=== PATIENT | female | born 1995 | race Caucasian/White ===

== ENCOUNTER 2016-07-08 04:21 | Inpatient (IN) | payer OTHER ==
[2016-07-08] MEDS ORDERED: Ondansetron INJ* 2 MG/ML VIAL IV ONE ×2 (04:38→05:01)
[2016-07-08] MEDS ORDERED: Insulin REGULAR(*) 1 UNITS UNIT IV ONE (04:38)
[2016-07-08] MEDS: NS 0.9% 1000 ML* 2,000 ML IV ONE ×2 (04:47→08:40)
[2016-07-08 04:56] LABS: Hematocrit 43 % (35-47); Hemoglobin 13.9 g/dl (12.0-16.0); Mean Corpuscular HGB Conc 32 g/dl (31-36); Mean Corpuscular Hemoglobin 30 pg (27-31); Mean Corpuscular Volume 92 fL (80-97); Mean Platelet Volume 10 um3 (7.4-10.4); Red Blood Count 4.68 10^6/ul (4.0-5.4); Red Cell Distribution Width 13 % (10.5-15); White Blood Count 10.1 10^3/ul (3.5-10.8)
[2016-07-08] MEDS ORDERED: NS 0.9% 1000 ML* 1,000 ML IV SCH (05:00)
[2016-07-08] MEDS ORDERED: Morphine INJ* 2 MG/ML 1 ML SYRINGE IV ONE (05:01)
[2016-07-08 05:10] LABS: ALT 28 U/L (7-52); Albumin 4.3 g/dL (3.2-5.2); Alkaline Phosphatase 88 U/L (34-104); BUN/Creatinine Ratio 19.3 (8-20); Blood Urea Nitrogen 17 mg/dL (6-24); Calcium 9.7 mg/dL (8.6-10.3); Chloride 95 mmol/L (101-111); EGFR African American 103.3 (>60); EGFR Non-African American 80.4 (>60); Sodium 132 mmol/L (133-145); Total Protein 7.3 g/dL (6.4-8.9)
[2016-07-08 05:13] LABS: CO2 Carbon Dioxide 11 mmol/L (22-32); Glucose 633 mg/dL (70-100)
[2016-07-08] MEDS ORDERED: Acetaminophen TAB* 325 MG PO PRN (05:23)
[2016-07-08] MEDS ORDERED: CMC:Melatonin (NF) 3 MG TAB PO PRN (05:24)
[2016-07-08] MEDS ORDERED: NS 0.9% 1000 ML* 3,000 ML IV ONE (05:25)
[2016-07-08] MEDS ORDERED: Ondansetron INJ* 2 MG/ML VIAL IV PRN (05:25)
[2016-07-08] MEDS ORDERED: PROCHLORPERAZINE INJ 5 MG/ML 2 ML VIAL IV PRN (05:25)
[2016-07-08 05:43] LABS: Venous Bicarbonate HCO3 8.8 mmol/L (24-28)
--- NOTE | 2016-07-08 05:46 | ED ---
Tiago Mota Salem, scribed for Jerry Wright on 07/08/16 at 0452 . HPI Diabetic - HPI Summary HPI Summary: Patient is a 20 y/o female who presents to the ED for acute vomiting and nausea since last night begin at 2230. She reports dyspnea, abd pain, and dehydration. Pt denies fever. She reports having EtOH at 1900. - History Of Current Complaint Chief Complaint: EDDiabeticProb Time Seen by Provider: 07/08/16 04:36 Hx Obtained From: Patient Onset/Duration: Sudden Onset Severity Initially: Moderate Severity Currently: Moderate Aggravating: Nothing Alleviating: Nothing Associated Signs & Symptoms: Abdominal Pain, Nausea, Shortness of Breath, Vomiting - Allergies/Home Medications Allergies/Adverse Reactions: Allergies Allergy/AdvReac Type Severity Reaction Status Date / Time No Known Allergies Allergy Verified 07/08/16 04:47 PMH/Surg Hx/FS Hx/Imm Hx Endocrine/Hematology History: Reports: Hx Diabetes Infectious Disease History: No Infectious Disease History: Denies: Traveled Outside the [place] in Last 30 Days - Family History Known Family History: Positive: Diabetes - brother. Negative: Cardiac Disease - Social History Alcohol Use: Occasionally Hx Tobacco Use: No Review of Systems Positive: Other - Dehydration. . Negative: Fever Positive: Shortness Of Breath Positive: Abdominal Pain, Vomiting, Nausea All Other Systems Reviewed And Are Negative: Yes Physical Exam Triage Information Reviewed: Yes Vital Signs On Initial Exam: Initial Vitals Temp Pulse Resp BP Pulse Ox 98.4 F 115 26 89/63 97 07/08/16 04:26 07/08/16 04:26 07/08/16 04:26 07/08/16 04:26 07/08/16 04:26 Vital Signs Reviewed: Yes Appearance: Positive: No Pain Distress Skin: Positive: Warm, Skin Color Reflects Adequate Perfusion, Dry Head/Face: Positive: Normal Head/Face Inspection Eyes: Positive: EOMI, BART ENT: Positive: Other - DMM. Neck: Positive: Supple, Nontender Respiratory/Lung Sounds: Positive: Clear to Auscultation, Breath Sounds Present Cardiovascular: Positive: RRR, Pulses are Symmetrical in both Upper and Lower Extremities Abdomen Description: Positive: Other: - Tenderness in right and left lower quadrant. Bowel Sounds: Positive: Present Musculoskeletal: Positive: Normal, Strength/ROM Intact Neurological: Positive: Normal, Sensory/Motor Intact, Alert, Oriented to Person Place, Time Diagnostics - Vital Signs Vital Signs Temp Pulse Resp BP Pulse Ox 07/08/16 04:26 98.4 F 115 26 89/63 97 - Laboratory Result Diagrams: 07/08/16 04:42 07/08/16 04:42 Lab Statement: Any lab studies that have been ordered have been reviewed, and results considered in the medical decision making process. - EKG 0428 EKG Interpretation: Sinus tachycardia @ 111 bmp. Diabetic Course/Dx - Diagnoses Provider Diagnoses: DKA (diabetic ketoacidoses), Abdominal pain - Physician Notifications Discussed Care of Patient With: Dr. Whelan (hospitalist) @ 0514. Will admit. - Critical Care Time Critical Care Time: 30-74 min - DKA. Discharge - Discharge Plan Condition: Stable Disposition: ADMITTED TO [facility] The documentation as recorded by the Tiago higgins Salem accurately reflects the service I personally performed and the decisions made by Kyle lopez Emmanuel.
[2016-07-08 05:54] LABS: Lipase < 10 U/L (11.0-82.0)
[2016-07-08 06:06] LABS: TSH (Thyroid Stimulating Horm) 0.76 mcIU/mL (0.34-5.60)
--- NOTE | 2016-07-08 06:19 | HP ---
H&P (Free Text) History and Physical: PCP: Luis Date/Time of Evaluation: 07/08/2016 0530 CC: abdominal cramping, N/V, hyperglycemia HPI: Ms Guo is a 20YO female [place] student HX IDDM since age 5 who reports being in her usual state of health yesterday until around 2200 when she began having diffuse moderate abdominal cramping associated w/ N/V/D. She admits to dry cough, but denies F/C, headache, sore throat, B/U/F of urine, or other issues. She denies chest pain, SOB, palpitations, light-headedness, or other issues. Work up is notable for a glucose of 633 w/ a serum CO2 of 11 and pH of 7.0. Admission will be to ICU for management of DKA. She states she has only been hospitalized for diabetic issues twice in her life. 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; full code status FamHx: twin brother: IDDM ROS: as above, otherwise reviewed and all were negative Constitutional: NAD, normally developed, well-nourished white female vitals: Vital Signs Temp 36.9 C 07/08/16 06:10 Pulse 112 07/08/16 06:10 Resp 16 07/08/16 06:10 BP 105/74 07/08/16 06:10 Pulse Ox 99 07/08/16 06:10 Intake & Output 07/07/16 07/07/16 07/08/16 11:59 23:59 11:59 Intake Total 1999 Balance 1999 Weight 61.235 kg Intake: IV Fluids 1999 HEENM: atraumatic; sclera/conjunctiva: non-icteric/clear; hearing: clinically intact; oropharynx: clear, mucosa moist Neck: soft tissue: non-tender; thyroid: normal Pulmonary: clear to auscultation bilaterally, good aeration, no accessory muscle use CV: RR/RR, normal S1S2, no carotid bruit, no jugular venous distention, 2+ B DP/ PT, no edema Abdominal: soft, non-distended, mildly diffusely tender, no rebound/guarding/ rigidity, normoactive bowel sounds, no hepatosplenomegaly or masses, no costovertebral angle tenderness Musculoskeletal: general: grossly intact; gait: stable Integumental: normal appearance and texture Psychiatric orientation: AA&O to PPS affect: calm mood: cooperative eye contact: fair content: reliable responses: timely insight: fair to good Testing: Lab Results 07/08/16 07/08/16 07/08/16 Range/Units 04:42 04:42 04:42 WBC 10.1 (3.5-10.8) 10^3/ul RBC 4.68 (4.0-5.4) 10^6/ul Hgb 13.9 (12.0-16.0) g/dl Hct 43 (35-47) % MCV 92 (80-97) fL MCH 30 (27-31) pg MCHC 32 (31-36) g/dl RDW 13 (10.5-15) % Plt Count 166 (150-450) 10^3/ul MPV 10 (7.4-10.4) um3 Neut % (Auto) 87.9 H (38-83) % Lymph % (Auto) 8.4 L (25-47) % [place] % (Auto) 2.6 (1-9) % Eos % (Auto) 0.3 (0-6) % Baso % (Auto) 0.8 (0-2) % Absolute Neuts (auto) 8.9 H (1.5-7.7) 10^3/ul Absolute Lymphs (auto) 0.8 L (1.0-4.8) 10^3/ul Absolute Monos (auto) 0.3 (0-0.8) 10^3/ul Absolute Eos (auto) 0 (0-0.6) 10^3/ul Absolute Basos (auto) 0.1 (0-0.2) 10^3/ul Absolute Nucleated RBC 0 10^3/ul Nucleated RBC % 0 VBG pH (7.33-7.43) VBG pCO2 (41-51) mmHg VBG pO2 (35-45) mmHg VBG HCO3 (24-28) mmol/L VBG O2 Saturation (70-80) % VBG Base Excess (0-4) Sodium 132 L (133-145) mmol/L Potassium TNP Chloride 95 L (101-111) mmol/L Carbon Dioxide 11 L* (22-32) mmol/L Anion Gap TNP BUN 17 (6-24) mg/dL Creatinine 0.88 (0.51-0.95) mg/dL Est GFR ( Amer) 103.3 (>60) Est GFR (Non-Af Amer) 80.4 (>60) BUN/Creatinine Ratio 19.3 (8-20) Glucose 633 H* (70-100) mg/dL POC Glucose (mg/dL) (74-106) mg/dL Lactic Acid 2.4 H* (0.5-2.0) mmol/L Calcium 9.7 (8.6-10.3) mg/dL Magnesium 2.0 (1.9-2.7) mg/dL Total Bilirubin 0.60 (0.2-1.0) mg/dL AST TNP ALT 28 (7-52) U/L Alkaline Phosphatase 88 (34-104) U/L Total Protein 7.3 (6.4-8.9) g/dL Albumin 4.3 (3.2-5.2) g/dL Globulin 3.0 (2-4) g/dL Albumin/Globulin Ratio 1.4 (1-3) Lipase < 10 L (11.0-82.0) U/L TSH 0.76 (0.34-5.60) mcIU/mL Beta HCG, Quant < 0.60 mIU/mL 07/08/16 07/08/16 07/08/16 Range/Units 04:42 04:46 05:24 WBC (3.5-10.8) 10^3/ul RBC (4.0-5.4) 10^6/ul Hgb (12.0-16.0) g/dl Hct (35-47) % MCV (80-97) fL MCH (27-31) pg MCHC (31-36) g/dl RDW (10.5-15) % Plt Count (150-450) 10^3/ul MPV (7.4-10.4) um3 Neut % (Auto) (38-83) % Lymph % (Auto) (25-47) % [place] % (Auto) (1-9) % Eos % (Auto) (0-6) % Baso % (Auto) (0-2) % Absolute Neuts (auto) (1.5-7.7) 10^3/ul Absolute Lymphs (auto) (1.0-4.8) 10^3/ul Absolute Monos (auto) (0-0.8) 10^3/ul Absolute Eos (auto) (0-0.6) 10^3/ul Absolute Basos (auto) (0-0.2) 10^3/ul Absolute Nucleated RBC 10^3/ul Nucleated RBC % VBG pH 7.09 L (7.33-7.43) VBG pCO2 27 L (41-51) mmHg VBG pO2 49 H (35-45) mmHg VBG HCO3 8.8 L (24-28) mmol/L VBG O2 Saturation 81.7 H (70-80) % VBG Base Excess -20.2 L (0-4) Sodium (133-145) mmol/L Potassium 4.4 Chloride (101-111) mmol/L Carbon Dioxide (22-32) mmol/L Anion Gap BUN (6-24) mg/dL Creatinine (0.51-0.95) mg/dL Est GFR ( Amer) (>60) Est GFR (Non-Af Amer) (>60) BUN/Creatinine Ratio (8-20) Glucose (70-100) mg/dL POC Glucose (mg/dL) > 444 H* (74-106) mg/dL Lactic Acid (0.5-2.0) mmol/L Calcium (8.6-10.3) mg/dL Magnesium (1.9-2.7) mg/dL Total Bilirubin (0.2-1.0) mg/dL AST 33 ALT (7-52) U/L Alkaline Phosphatase (34-104) U/L Total Protein (6.4-8.9) g/dL Albumin (3.2-5.2) g/dL Globulin (2-4) g/dL Albumin/Globulin Ratio (1-3) Lipase (11.0-82.0) U/L TSH (0.34-5.60) mcIU/mL Beta HCG, Quant mIU/mL ECG, personally reviewed: sinus tachycardia rate 111, no ischemia CXR, personally reviewed: ordered, pending Impression: 20F HX IDDM presenting w/ DKA, no obvious etiology DIAGNOSIS & PLAN Primary DKA : ICU monitoring : insulin GTT to correct acidosis : aggressive IVFs for volume repletion : close monitoring of electrolytes : supplemental oxygen : supportive care Admission Rational: inpatient for ICU management of life-threatening DKA DVTp: ERICA Code Status: full
[2016-07-08] MEDS ORDERED: Pantoprazole IV* 40 MG ONE (06:33)
[2016-07-08] MEDS: Pantoprazole IV* 40 MG IV SCH ×2 (06:39→07:47)
[2016-07-08] MEDS ORDERED: HYDROmorphone* 1 MG/ML 1 ML SYR IV PRN (06:54)
[2016-07-08 08:35] LABS: Potassium 3.7 mmol/L (3.5-5.0)
--- NOTE | 2016-07-08 08:55 | RAD ---
INDICATION: Diabetic ketoacidosis. Possible infection. COMPARISON: None TECHNIQUE: An AP portable view obtained at 0805 hours is submitted. FINDINGS: Bones/Soft Tissues: There are no acute bony findings. Cardiomediastinal: The cardiomediastinal silhouette is normal. Lungs: There are no infiltrates. Pleura: There are no pleural effusions. Other: None IMPRESSION: NO ACTIVE DISEASE.
[2016-07-08 08:56] LABS: BUN/Creatinine Ratio 23.8 (8-20); Blood Urea Nitrogen 15 mg/dL (6-24); Calcium 7.8 mg/dL (8.6-10.3); Chloride 110 mmol/L (101-111); EGFR Non-African American 118.2 (>60); Glucose 262 mg/dL (70-100); Magnesium 1.7 mg/dL (1.9-2.7); Phosphorus 2.2 mg/dL (2.5-5.0); Sodium 137 mmol/L (133-145)
[2016-07-08] MEDS: POTASSIUM CHLORIDE IV PRN ×2 (09:04→15:52)
[2016-07-08] MEDS: DEXTROSE IV PRN ×2 (09:04→15:52)
[2016-07-08] MEDS: [UNRECOGNIZED DRUG - OTHER] IV PRN ×2 (09:04→15:52)
[2016-07-08 09:15] LABS: CO2 Carbon Dioxide 14 mmol/L (22-32); Venous Bicarbonate HCO3 13.8 mmol/L (24-28)
[2016-07-08] MEDS ORDERED: Magnesium Sulfate 2 GM IV* 2 GM/50 ML BAG IVPB ONE (10:30)
[2016-07-08] MEDS ORDERED: Potassium Phosphate IV* 5 MMOLE in NS 0.9% 250 ML* 250 ML IVPB ONE (11:00)
[2016-07-08 13:40] LABS: Phosphorus 2.2 mg/dL (2.5-5.0)
[2016-07-08 14:33] LABS: BUN/Creatinine Ratio 19.7 (8-20); Calcium 7.7 mg/dL (8.6-10.3); EGFR African American 157.7 (>60); EGFR Non-African American 122.6 (>60); Potassium 3.8 mmol/L (3.5-5.0)
[2016-07-08] MEDS ORDERED: Insulin GLARGINE(*) 1 UNITS UNIT SUBCUT SCH (15:00)
[2016-07-08] MEDS ORDERED: Potassium Phosphate IV* 15 MMOLE in NS 0.9% 250 ML* 250 ML IVPB ONE (15:00)
--- NOTE | 2016-07-08 15:34 | PN ---
Hospitalist Progress Note HOSPITALIST ADDENDUM Patient seen and examined at bedside. She states her abdominal pain and nausea are resolved, but feels very tired. The cause of this episode seems to be non-compliance as she missed her Lantus dose yesterday and does not remember how much Humalog she was taking. No signs or symptoms of infection at this time. AG is now closed, glucose is <200. Will resume Lantus, start diet, continue IVF and titrate insulin drip to off. Continue to monitor in ICU.
[2016-07-08] MEDS ORDERED: Dextrose 50% Syringe 50 ML* 25 GM/50 ML SYRINGE IV PUSH PRN (16:03)
[2016-07-08 19:48] LABS: Urine Bilirubin Negative (Negative); Urine Glucose 3+(>=500 mg/dL) (Negative); Urine Nitrite Negative (Negative)
[2016-07-08 20:25] LABS: BUN/Creatinine Ratio 16.9 (8-20); Calcium 7.9 mg/dL (8.6-10.3); EGFR African American 146.6 (>60); Phosphorus 3.4 mg/dL (2.5-5.0); Potassium 4.5 mmol/L (3.5-5.0)
[2016-07-08] MEDS: Insulin LISPRO* 1 UNITS UNIT SUBCUT SCH ×3 (21:01→22:31)
[2016-07-09] MEDS: Insulin LISPRO* 1 UNITS UNIT SUBCUT SCH ×2 (00:25→04:09)
[2016-07-09] MEDS ORDERED: Insulin LISPRO* 1 UNITS UNIT SUBCUT SCH (07:30)
[2016-07-09] MEDS: Pantoprazole IV* 40 MG IV SCH (07:34)
[2016-07-09 07:48] VITALS: BP 91/58
[2016-07-09 08:09] LABS: BUN/Creatinine Ratio 16.3 (8-20); Calcium 8.3 mg/dL (8.6-10.3); EGFR African American 203.1 (>60); EGFR Non-African American 157.9 (>60); Phosphorus 3.6 mg/dL (2.5-5.0); Potassium 3.7 mmol/L (3.5-5.0)
--- NOTE | 2016-07-09 22:20 | DS ---
DISCHARGE SUMMARY: DATE OF ADMISSION: 07/08/16 DATE OF DISCHARGE: 07/09/16 DISCHARGE DIAGNOSIS: Diabetic ketoacidosis. SECONDARY DIAGNOSIS: Type 1 diabetes. HOSPITAL COURSE: Ms. Guo is a 20-year-old lady with a past medical as stated above that presented to the emergency room with complaints of abdominal pain, nausea, vomiting that had started the night prior to admission. Although she denied any other symptoms or precipitating factors, she was found to be in DKA with a glucose of 633, pH of 7.09. She was admitted to the intensive care unit for further management and although, she denied any precipitating factors. Later on, she admitted that she had skipped a dose of Lantus and she has not been using her Humalog sliding scale as she should. The patient was started on an insulin drip, aggressive IV fluid, and electrolyte replacement, and she had progressive improvement. Her glucose level normalized, her anion gap closed, and her acidosis is much improved. The patient was able to tolerate an oral diet and was transitioned back to her regimen of Lantus and Humalog. The patient received education regarding her diagnosis and the importance of followup. She will follow up at [facility] and she was also referred to the [facility] to help her manage her diabetes. The patient states that she has enough insulin at home and she will just need more needles, but she did not want me to send prescriptions to a local pharmacy. She states that she will pick them up at [facility]. The patient is medically stable for discharge at this time. PHYSICAL EXAMINATION: Vital Signs: Temperature 97.6, heart rate is 95, respiratory rate is 16, oxygen saturation 98% on room air, blood pressure is 91/ 58. General: The patient is a young lady, sitting up in bed, in no acute distress. CVS: Normal S1, S2. Regular rate and rhythm. Chest: Breath sounds present bilaterally with no added sounds. Extremities: No edema. Neuro: She is alert, awake, and oriented x3. Able to move all 4 extremities. DIET: Consistent carb diet. ACTIVITY: As tolerated. DISPOSITION: To home. STATUS WHILE IN THE HOSPITAL: Inpatient. If you need more information, please feel free to call me at [phone] or please obtain the full medical records. TIME SPENT: Approximately 45 minutes were spent to complete this discharge. CC: * Dr. Jaky Daley, [place], [facility], phone number is [phone]; Julia Stack NP, [facility] [id number]/[facility] #: [id number] [facility] HOSPITALVeronika
[2016-07-10] MEDS ORDERED: Influenza VAC *QUAD* 2016-17* 0.5 ML SYRINGE IM ONE (09:00)
== END 2016-07-09 10:40 | disposition home or self-care (01) | DRG 639 ==
LOC: ED 04:21 → ICU 05:21 → MED 07-09 02:00
PROVIDERS: ADMIT Hospitalist; ATTEND Internal Medicine
DX: E10.10 Type 1 diabetes mellitus with ketoacidosis without coma (principal); Z91.14 Patient's other noncompliance with medication regimen; Z83.3 Family history of diabetes mellitus; Z79.4 Long term (current) use of insulin
CPT/HCPCS: 36415; 71010; 80048; 80051; 80053; 81003; 82803; 83036; 83605; 83690; 83735; 84100; 84443; 84702; 85025; 87040; 87502; 87641; 93005; J1170; J2270; J2405

== ENCOUNTER 2017-08-27 15:17 | Emergency (ER) | payer OTHER ==
[2017-08-27 15:57] LABS: ABS Basophils 0.1 10^3/ul (0-0.2); ABS Eosinophils 0.1 10^3/ul (0-0.6); ABS Lymphocytes 1.3 10^3/ul (1.0-4.8); ABS Monocytes 0.3 10^3/ul (0-0.8); ABS Neutrophils 6.4 10^3/ul (1.5-7.7); ABS Nucleated RBC 0 10^3/ul; Eosinophil % 0.8 % (0-6); Hematocrit 41 % (35-47); Hemoglobin 13.8 g/dl (12.0-16.0); Lymphocyte % 15.5 % (25-47); Mean Corpuscular HGB Conc 34 g/dl (31-36); Mean Corpuscular Hemoglobin 30 pg (27-31); Mean Corpuscular Volume 89 fL (80-97); Mean Platelet Volume 9.2 um3 (7.4-10.4); Nucleated Red Blood Cells % 0; Platelet Count 227 10^3/ul (150-450); Red Blood Count 4.59 10^6/ul (4.0-5.4); Red Cell Distribution Width 12 % (10.5-15); White Blood Count 8.2 10^3/ul (3.5-10.8)
[2017-08-27 16:29] LABS: EGFR Non-African American 126.3 (>60)
[2017-08-27 16:41] LABS: Urine Appearance Clear; Urine Blood Negative (Negative); Urine Color Yellow; Urine Ketones 2+ (Negative); Urine Protein Negative (Negative); Urine Specific Gravity 1.032 (1.010-1.030); Urine Urobilinogen Negative (Negative)
[2017-08-27 20:11] VITALS: BP 105/65
--- NOTE | 2017-08-27 21:09 | ED ---
Zuleika Mota Edward, scribed for Cy Galeas MD on 08/27/17 at 1530 . HPI Diabetic - HPI Summary HPI Summary: 21 y/o female PRAMOD, sent from [place] for concerns of DKA. Pt originally went to [place] today c/o anxiety over "grad school". [facility] her blood sugar was checked and it was reported high; sent to ED. Pt refused treatment. 945 called. PMHx DM (since she was 5). Past medications reviewed on visit. - History Of Current Complaint Time Seen by Provider: 08/27/17 15:23 Hx Obtained From: Patient Onset/Duration: Other Character: Alert Aggravating: Nothing Alleviating: Nothing Associated Signs & Symptoms: Negative - Allergies/Home Medications Allergies/Adverse Reactions: Allergies Allergy/AdvReac Type Severity Reaction Status Date / Time No Known Allergies Allergy Verified 07/08/16 04:47 Home Medications: Home Medications Insulin GLARGINE(*) [Lantus(*)] 38 units SUBCUT QAM 08/27/17 [History Confirmed 08/27/17] Insulin LISPRO* [HumaLOG*] 40 units SUBCUT DAILY 08/27/17 [History Confirmed ] PMH/Surg Hx/FS Hx/Imm Hx Previously Healthy: No Endocrine/Hematology History: Reports: Hx Diabetes Cardiovascular History: Reports: Other Cardiovascular Problems/Disorders - DIABETIC Sensory History: Reports: Hx Contacts or Glasses - not with pt Opthamlomology History: Reports: Hx Contacts or Glasses - not with pt Neurological History: Reports: Hx Seizures - 2nd grade, none since - Family History Known Family History: Positive: Diabetes - brother. Negative: Cardiac Disease - Social History Alcohol Use: Occasionally Alcohol Amount: States only a social drinker. Substance Use Type: Reports: None Hx Tobacco Use: No Smoking Status (MU): Never Smoked Tobacco Review of Systems Constitutional: Negative Eyes: Negative ENT: Negative Cardiovascular: Negative Respiratory: Negative Gastrointestinal: Negative Genitourinary: Negative Musculoskeletal: Negative Skin: Negative Neurological: Negative Positive: Anxious All Other Systems Reviewed And Are Negative: Yes Physical Exam - Summary Physical Exam Summary: Appearance: The patient is well-nourished in no acute distress and in no acute pain. Skin: The skin is warm and dry and skin color reflects adequate perfusion. HEENT: The head is normocephalic and atraumatic. The pupils are equal and reactive. The conjunctivae are clear and without drainage. Nares are patent and without drainage. Mouth reveals moist mucous membranes and the throat is without erythema and exudate. The external ears are intact. The ear canals are patent and without drainage. The tympanic membranes are intact. Neck: the neck is supple with full range of motion and non-tender. There are no carotid bruits. There is no neck vein distension. Respiratory: Chest is non-tender. Lungs are clear to auscultation and breath sounds are symmetrical and equal. Cardiovascular: Heart is regular rate and rhythm. There is no murmur or rub auscultated. There is no peripheral edema and pulses are symmetrical and equal. Abdomen: The abdomen is soft and non-tender. There are normal bowel sounds heard in all four quadrants and there is no organomegaly palpated. Musculoskeletal: There is no back tenderness noted. Extremities are non-tender with full range of motion. There is good capillary refill. There is no peripheral edema or calf tenderness elicited. Neurological: Patient is alert and oriented to person, place and time. The patient has symmetrical motor strength in all four extremities. Cranial nerves are grossly intact. Deep tendon reflexes are symmetrical and equal in all four extremities. Psychiatric: The patient has an appropriate affect and does not exhibit any anxiety or depression. Triage Information Reviewed: Yes Vital Signs On Initial Exam: Initial Vitals Temp Pulse Resp BP Pulse Ox 98.5 F 109 16 115/80 98 08/27/17 15:28 08/27/17 15:28 08/27/17 15:28 08/27/17 15:28 08/27/17 15:28 Vital Signs Reviewed: Yes Diagnostics - Vital Signs Vital Signs Temp Pulse Resp BP Pulse Ox 08/27/17 20:10 98 F 98 16 105/65 97 08/27/17 18:30 102 18 102/65 98 08/27/17 15:31 104 97 08/27/17 15:29 115/80 08/27/17 15:28 98.5 F 109 16 115/80 98 - Laboratory Lab Results: Lab Results 08/27/17 08/27/17 08/27/17 Range/Units 15:48 15:48 15:48 WBC 8.2 (3.5-10.8) 10^3/ul RBC 4.59 (4.0-5.4) 10^6/ul Hgb 13.8 (12.0-16.0) g/dl Hct 41 (35-47) % MCV 89 (80-97) fL MCH 30 (27-31) pg MCHC 34 (31-36) g/dl RDW 12 (10.5-15) % Plt Count 227 (150-450) 10^3/ul MPV 9.2 (7.4-10.4) um3 Neut % (Auto) 78.7 (38-83) % Lymph % (Auto) 15.5 L (25-47) % [place] % (Auto) 4.0 (0-7) % Eos % (Auto) 0.8 (0-6) % Baso % (Auto) 1.0 (0-2) % Absolute Neuts (auto) 6.4 (1.5-7.7) 10^3/ul Absolute Lymphs (auto) 1.3 (1.0-4.8) 10^3/ul Absolute Monos (auto) 0.3 (0-0.8) 10^3/ul Absolute Eos (auto) 0.1 (0-0.6) 10^3/ul Absolute Basos (auto) 0.1 (0-0.2) 10^3/ul Absolute Nucleated RBC 0 10^3/ul Nucleated RBC % 0 VBG pH (7.33-7.43) VBG pCO2 (41-51) mmHg VBG pO2 (35-45) mmHg VBG HCO3 (24-28) mmol/L VBG O2 Saturation (70-80) % VBG Base Excess (0-4) Sodium 138 L (139-145) mmol/L Potassium 3.7 (3.5-5.0) mmol/L Chloride 103 (101-111) mmol/L Carbon Dioxide 27 (22-32) mmol/L Anion Gap 8 (2-11) mmol/L BUN 14 (6-24) mg/dL Creatinine 0.59 (0.51-0.95) mg/dL Est GFR ( Amer) 162.4 (>60) Est GFR (Non-Af Amer) 126.3 (>60) BUN/Creatinine Ratio 23.7 H (8-20) Glucose 244 H (70-100) mg/dL Lactic Acid 1.0 (0.5-2.0) mmol/L Calcium 9.2 (8.6-10.3) mg/dL Total Bilirubin 0.60 (0.2-1.0) mg/dL AST 10 L (13-39) U/L ALT 13 (7-52) U/L Alkaline Phosphatase 59 (34-104) U/L C-Reactive Protein 3.71 (< 5.00) mg/L Total Protein 6.8 (6.4-8.9) g/dL Albumin 4.1 (3.2-5.2) g/dL Globulin 2.7 (2-4) g/dL Albumin/Globulin Ratio 1.5 (1-3) Beta HCG, Quant < 0.60 mIU/mL Urine Color Urine Appearance Urine pH (5-9) Ur Specific [place] (1.010-1.030) Urine Protein (Negative) Urine Ketones (Negative) Urine Blood (Negative) Urine Nitrate (Negative) Urine Bilirubin (Negative) Urine Urobilinogen (Negative) Ur Leukocyte Esterase (Negative) Urine WBC (Auto) (Absent) Urine RBC (Auto) (Absent) Ur Squamous Epith Cells (Absent) Urine Bacteria (Absent) Urine Glucose (Negative) Salicylates < 2.50 (<30) mg/dL Urine Opiates Screen (None Detect) Acetaminophen < 15 mcg/mL Ur Barbiturates Screen (None Detect) Ur Phencyclidine Scrn (None Detect) Ur Amphetamines Screen (None Detect) U Benzodiazepines Scrn (None Detect) Urine Cocaine Screen (None Detect) U Cannabinoids Screen (None Detect) Serum Alcohol < 10 (<10) mg/dL 08/27/17 08/27/17 08/27/17 Range/Units 16:00 16:20 16:20 WBC (3.5-10.8) 10^3/ul RBC (4.0-5.4) 10^6/ul Hgb (12.0-16.0) g/dl Hct (35-47) % MCV (80-97) fL MCH (27-31) pg MCHC (31-36) g/dl RDW (10.5-15) % Plt Count (150-450) 10^3/ul MPV (7.4-10.4) um3 Neut % (Auto) (38-83) % Lymph % (Auto) (25-47) % [place] % (Auto) (0-7) % Eos % (Auto) (0-6) % Baso % (Auto) (0-2) % Absolute Neuts (auto) (1.5-7.7) 10^3/ul Absolute Lymphs (auto) (1.0-4.8) 10^3/ul Absolute Monos (auto) (0-0.8) 10^3/ul Absolute Eos (auto) (0-0.6) 10^3/ul Absolute Basos (auto) (0-0.2) 10^3/ul Absolute Nucleated RBC 10^3/ul Nucleated RBC % VBG pH 7.35 (7.33-7.43) VBG pCO2 52 H (41-51) mmHg VBG pO2 17 L (35-45) mmHg VBG HCO3 24.5 (24-28) mmol/L VBG O2 Saturation 27.4 L (70-80) % VBG Base Excess 2.0 (0-4) Sodium (139-145) mmol/L Potassium (3.5-5.0) mmol/L Chloride (101-111) mmol/L Carbon Dioxide (22-32) mmol/L Anion Gap (2-11) mmol/L BUN (6-24) mg/dL Creatinine (0.51-0.95) mg/dL Est GFR ( Amer) (>60) Est GFR (Non-Af Amer) (>60) BUN/Creatinine Ratio (8-20) Glucose (70-100) mg/dL Lactic Acid (0.5-2.0) mmol/L Calcium (8.6-10.3) mg/dL Total Bilirubin (0.2-1.0) mg/dL AST (13-39) U/L ALT (7-52) U/L Alkaline Phosphatase (34-104) U/L C-Reactive Protein (< 5.00) mg/L Total Protein (6.4-8.9) g/dL Albumin (3.2-5.2) g/dL Globulin (2-4) g/dL Albumin/Globulin Ratio (1-3) Beta HCG, Quant mIU/mL Urine Color Yellow Urine Appearance Clear Urine pH 5.0 (5-9) Ur Specific [place] 1.032 H (1.010-1.030) Urine Protein Negative (Negative) Urine Ketones 2+ A (Negative) Urine Blood Negative (Negative) Urine Nitrate Negative (Negative) Urine Bilirubin Negative (Negative) Urine Urobilinogen Negative (Negative) Ur Leukocyte Esterase 2+ A (Negative) Urine WBC (Auto) 2+(11-20/hpf) A (Absent) Urine RBC (Auto) 1+(3-5/hpf) A (Absent) Ur Squamous Epith Cells Present A (Absent) Urine Bacteria 1+ A (Absent) Urine Glucose 3+(>=500 mg/dl) A (Negative) Salicylates (<30) mg/dL Urine Opiates Screen None detected (None Detect) Acetaminophen mcg/mL Ur Barbiturates Screen None detected (None Detect) Ur Phencyclidine Scrn None detected (None Detect) Ur Amphetamines Screen None detected (None Detect) U Benzodiazepines Scrn None detected (None Detect) Urine Cocaine Screen None detected (None Detect) U Cannabinoids Screen None detected (None Detect) Serum Alcohol (<10) mg/dL Result Diagrams: 08/27/17 15:48 08/27/17 15:48 Lab Statement: Any lab studies that have been ordered have been reviewed, and results considered in the medical decision making process. Diabetic Course/Dx - Course Course Of Treatment: Ms. Guo has been under a lot of stress trying to arrange to go to graduate school and went to [place] today to talk with someone. They found her BS very high and some ketones in her U/A and wanted to send her over here. She didn't want to come stating that she has a lot of experience with her BSs and could handle them on her own. She took insulin at [place]. They felt that she was exhibing self harm behavior and sent her over on a 945. She was stable here and not in DKA so she was medically cleared and had a MHE. They felt that she was safe to go home. - Diagnoses Provider Diagnoses: Hyperglycemia due to type 1 diabetes mellitus, Anxiety Discharge - Sign-Out/Discharge Documenting (check all that apply): Discharge - Discharge Plan Condition: Stable Disposition: HOME [facility] [Primary Care Provider] - If Needed (If you feel that you need to speak with someone when you are feeling overwhelmed contact the health center.) - Billing Disposition and Condition Condition: STABLE Disposition: HOME The documentation as recorded by the scribe, Zuleika,Edward accurately reflects the service I personally performed and the decisions made by , Cy Galeas MD.
== END 2017-08-27 20:11 | disposition home or self-care (01) ==
LOC: ED 15:17
DX: E10.65 Type 1 diabetes mellitus with hyperglycemia (principal); F41.9 Anxiety disorder, unspecified
CPT/HCPCS: 36415; 80053; 80307; 80320; 80329; 81003; 81015; 82803; 83605; 84702; 85025; 86140; 87086; 99283; G0480